=== PATIENT | male | born 1980 | race Caucasian/White ===

== ENCOUNTER 2017-05-01 08:38 | Emergency (ER) | payer OTHER ==
[~2017-05-01] VITALS: Ht 175.3 cm; Wt 79.4 kg
[~2017-05-01 08:38] MED LIST: ACETAMINOPHEN-1 EAC1 PO; BUTALB-APAP-CA1 EACH PO; DOXYCYCLINE 10100 MG PO; FLEXERIL PO; FLOMAX0.4 MG PO; NOHOMEMEDICATIONS; NORCO 5-325 TA1 EACH PO; OMEPRAZOLE20 M1 PO; OMEPRAZOLE40 MG PO; PREDNISONE 20 M20 M1 PO; VALIUM5 MG PO; VENTOLIN HFA 1818 GM INH; ZANTAC 150MG T150 MG PO; ZOFRAN4 MG PO; ZPAK PO
[2017-05-01] MEDS ORDERED: IBUPROFEN 800800 M1 PO (13:11)
[2017-05-01] MEDS ORDERED: NORCO 5-325 TA1 EACH PO (13:11)
[2017-05-01] MEDS ORDERED: FLEXERIL PO (13:11)
[2017-05-01] MEDS ORDERED: PREDNISONE50 MG PO (13:11)
[2017-05-01 13:25] VITALS: BP 130/79
== END 2017-05-01 13:27 | disposition home or self-care (01) ==
LOC: M.ERS 08:38
DX: M54.5 Low back pain (principal); F17.210 Nicotine dependence, cigarettes, uncomplicated; Z87.442 Personal history of urinary calculi; Z98.890 Other specified postprocedural states